=== PATIENT | female | born 1960 | race Caucasian/White ===

== ENCOUNTER → 2019-01-23 | Outpatient (CLI) | payer BC ==
[~2019-01-23] MED LIST: IOPAMIDOL (ISOVUE 370) 100 ML BTL IV ONE
== END ==
LOC: FIMAGING 08:20
PROVIDERS: ATTEND Neurological Surgery
DX: M48.02 Spinal stenosis, cervical region (principal); M43.12 Spondylolisthesis, cervical region
CPT/HCPCS: Q9967

== ENCOUNTER 2019-01-24 10:19 | Inpatient (IN) | payer BC ==
--- NOTE | 2019-01-24 06:41 | PDHPUP ---
History & Physical Update H&P update statement: This history and physical update is based on an assessment of the patient which was completed after admission or registration (within 24 hours), but prior to the surgery/procedure. H&P update: H&P reviewed & patient examined, no change in patient's condition since H&P completed
[~2019-01-24 10:19] MED LIST changes: +ACETAMINOPHEN 500 MG TAB PO ONE; +GABAPENTIN 300 MG CAP PO ONE; -IOPAMIDOL (ISOVUE 370) 100 ML BTL IV ONE; +LR 1,000 ML IV ONE; +ceFAZolin 2 GM/DEXTROSE 100 ML IV ONE
[2019-01-24] MEDS ORDERED: MIDAZOLAM 2 MG/2 ML VIAL IVP ONE (10:38)
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
[2019-01-24] MEDS ORDERED: BACITRACIN 50,000 UNITS/10 ML SYR IRR ONE (11:29)
[2019-01-24] MEDS ORDERED: CHLORHEXIDINE GLUC HIBICLENS 118 ML BTL TP ONE (11:29)
[2019-01-24] MEDS ORDERED: BUPIVACAINE/EPI 0.25% 30 ML SDV ONE (11:29)
[2019-01-24] MEDS ORDERED: THROMBIN (BOVINE) 5,000 UNIT VIAL TP ONE (11:29)
[2019-01-24] MEDS ORDERED: diphenhydrAMINE 25 MG CAP PO PRN (11:48)
[2019-01-24] MEDS ORDERED: ONDANSETRON DISINTEGRATING 4 MG TAB PO PRN (11:48)
[2019-01-24] MEDS ORDERED: MAGNESIUM HYDROXIDE 30 ML UDCUP PO PRN (11:48)
[2019-01-24] MEDS ORDERED: POLYETHYLENE GLYCOL 3350 17 GM PKT PO PRN (11:48)
[2019-01-24] MEDS ORDERED: LACTULOSE 20 GM/30 ML UDCUP PO PRN (11:48)
[2019-01-24] MEDS ORDERED: BISACODYL 10 MG SUPP PR PRN (11:48)
[2019-01-24] MEDS ORDERED: ONDANSETRON 4 MG/2 ML VIAL IVP PRN ×2 (11:48→13:00)
[2019-01-24] MEDS ORDERED: ROCURONIUM 50 MG/5 ML VIAL ONE (11:52)
[2019-01-24] MEDS ORDERED: SUCCINYLCHOLINE CHLORIDE 200 MG/10 ML SYR IVP ONE (11:52)
[2019-01-24] MEDS ORDERED: fentaNYL 100 MCG/2 ML INJ ONE ×2 (11:52→14:21)
[2019-01-24] MEDS ORDERED: ONDANSETRON 4 MG/2 ML VIAL ONE (11:52)
[2019-01-24] MEDS ORDERED: PROPOFOL/EMULSION 500 MG/50 ML BOTTLE IV ONE (11:52)
[2019-01-24] MEDS ORDERED: PROPOFOL 200 MG/20 ML VIAL ONE (11:52)
[2019-01-24] MEDS ORDERED: REMIFENTANIL HCL 1 MG VIAL ONE (11:52)
[2019-01-24] MEDS ORDERED: DEXAMETHASONE 4 MG/ML VIAL ONE (11:55)
[2019-01-24] MEDS ORDERED: LIDOCAINE 2% 5 ML SDV ONE (11:57)
[2019-01-24] MEDS ORDERED: NS 1,000 ML IV SCH (12:00)
[2019-01-24] MEDS ORDERED: ePHEDrine SULFATE 25 MG/5 ML SYR ONE (12:18)
[2019-01-24] MEDS ORDERED: MEPERIDINE 25 MG/0.5 ML AMP IVP PRN (13:00)
[2019-01-24] MEDS ORDERED: PHENYLEPHRINE HCL 100 MCG/ML SYR IVP PRN (13:00)
[2019-01-24] MEDS ORDERED: oxyCODONE IR 5 MG TAB PO PRN (13:00)
[2019-01-24] MEDS ORDERED: HYDROCODONE/APAP 5/325 TAB PO PRN (13:00)
[2019-01-24] MEDS ORDERED: PROMETHAZINE HCL 25 MG/ML INJ IVP PRN (13:00)
[2019-01-24] MEDS ORDERED: NALOXONE HCL 0.4 MG/ML INJ IVP PRN (13:00)
[2019-01-24] MEDS ORDERED: LABETALOL HCL 5 MG/ML 20 ML MDV IVP PRN (13:00)
[2019-01-24] MEDS ORDERED: ACETAMINOPHEN 500 MG TAB PO PRN (13:00)
[2019-01-24] MEDS ORDERED: LR 500 ML IV PRN (13:00)
[2019-01-24] MEDS ORDERED: fentaNYL 100 MCG/2 ML INJ IVP PRN (13:00)
--- NOTE | 2019-01-24 13:40 | PDMN ---
Medical Necessity Medical necessity: [facility] [place] [facility] [place] Cervical Fusion, Anterior, A-1 day: 58 yo s/p C4/5 cervical fusion anterior w/ hardware removal. Pt IP status for additional hardware removal w/ prior C5/6 fusion
[2019-01-24] MEDS ORDERED: PHENYLEPHRINE HCL 100 MCG/ML SYR ONE (14:01)
--- NOTE | 2019-01-24 14:20 | POSTOPPROG ---
Post Op Note Date of Operation: 01/24/19 Surgeon: Dayana York Chief Lifestyle Officer: MIGUEL Wilson Anesthesiologist: MD Ren Anesthesia: GET(General Endotracheal), Local (Specify) Pre-op Diagnosis: cervical stenosis C4/5 Post-op Diagnosis: cervical stenosis C4/5 Indication: LUE pain, neck pain. Stenosis on MRI Procedure: removal of hardware C5 level with new ACDF C4/5 Findings: see op report Inf/Abcess present in the surg proc area at time of surgery?: No Depth: Deep Incisional (Fascial) EBL: 100-500 Total fluids administered: see anesthesia record Complications: none Bowel Protocol: No Clean Closure Performed: Yes
--- NOTE | 2019-01-24 14:25 | SOAPPROG ---
SOAP Progress Note Assessment/Plan: Post Op Visit: S: Awake and alert. NAD. Pt with expected neck pain O: AFVSS/PERRLA/EOMI no droop CN 2-12 grossly intact +lt touch 5/5 BUE/BLE = CDI Neck soft and supple A/P: 58 yo female that is s/p removal of hardware at C5 with new ACDF C4/5 -orders in place -call with any questions or concerns -PT/OT/ST pending -post op xrays in am -collar from [facility] -take medications as directed Objective: Vital Signs Temp Pulse Resp BP Pulse Ox 37.3 C 99 9 L 162/89 H 98 01/24/19 11:50 01/24/19 11:50 01/24/19 11:50 01/24/19 11:50 01/24/19 11:50 ICD10 Worksheet Patient Problems: Problems Problem Status Onset Cervical radicular pain Acute Cervical stenosis of spine Acute S/P cervical spinal fusion Acute - ICD10 Problem Qualifiers (1) Cervical stenosis of spine (2) Cervical radicular pain (3) S/P cervical spinal fusion
[2019-01-24] MEDS ORDERED: HYDROmorphONE/DILAUDID 1 MG/ML INJ ONE (14:33)
[2019-01-24] MEDS: HYDROmorphONE/DILAUDID 1 MG/ML INJ IVP PRN ×5 (14:36→21:04)
[2019-01-24] MEDS ORDERED: DIAZEPAM 5 MG/ML 1 ML SYR ONE (14:59)
[2019-01-24] MEDS ORDERED: DIAZEPAM 5 MG/ML 1 ML SYR IVP ONE (15:15)
[2019-01-24] MEDS ORDERED: oxyCODONE IR 5 MG TAB ONE (15:23)
[2019-01-24] MEDS: ACETAMINOPHEN 500 MG TAB PO SCH ×2 (16:43→21:10)
[2019-01-24] MEDS: GABAPENTIN 300 MG CAP PO SCH ×2 (16:43→21:10)
[2019-01-24] MEDS: METHOCARBAMOL 750 MG TAB PO PRN ×2 (16:53→22:52)
--- NOTE | 2019-01-24 17:39 | POSTANESTH ---
Post Anesthetic Evaluation Cardiovascular Status: Similar to Pre-Op Cond Respiratory Status: Normal, Stable Level of Consciousness/Mental Status: Can Participate in Eval Pain Control: Adequate, Prn Tx Ordered Nausea/Vomiting Control: Adequate, Prn Tx Ordered Complications Possibly Related to Anesthesia: None Noted
[2019-01-24] MEDS: LORazepam 1 MG TAB PO PRN (17:46)
[2019-01-24] MEDS: oxyCODONE IR 5 MG TAB PO PRN ×2 (17:46→22:52)
[2019-01-24] MEDS: SENNOSIDES/DOCUSATE SODIUM TAB PO SCH (21:10)
[2019-01-24] MEDS: ceFAZolin 2 GM/DEXTROSE 100 ML IV SCH (21:10)
[2019-01-24] MEDS: FAMOTIDINE 20 MG TAB PO SCH (21:10)
[2019-01-25] MEDS: LORazepam 1 MG TAB PO PRN ×3 (02:06→20:40)
[2019-01-25] MEDS: HYDROmorphONE/DILAUDID 1 MG/ML INJ IVP PRN (02:11)
--- NOTE | 2019-01-25 04:11 | GOP ---
[f rep st] OPERATIVE REPORT DATE OF OPERATION: 01/24/2019 SURGEON: Fidencio York MD CORK PAINTER AND GRADER: Hernandez Wilson PA-C. PREOPERATIVE DIAGNOSIS: Adjacent segment disease with cervical stenosis and degenerative disk diseas e above a prior C5-6/C6-7 fusion. The new disease is at the C4-5 level. POSTOPERATIVE DIAGNOSIS: Adjacent segment disease with cervical stenosis and degenerative disk disea se above a prior C5-6/C6-7 fusion. The new disease is at the C4-5 level. PROCEDURE PERFORMED: Anterior cervical diskectomy with arthrodesis and bilateral foraminal decompres jeana, same level C4-5 (68662), removal of anterior cervical plating system at C5 (08528), placement o f biomechanical intervertebral device C4-5 ([id number]), same-incision bone graft harvest, microscope, yannick cement of an anterior cervical plate C4-5 ([id number]). FINDINGS: ESTIMATED BLOOD LOSS: 25 cc. INDICATIONS: The patient is a 58-year-old who underwent a successful two-level ACDF with an outside surgeon at C5-6/C6-7 a few years ago. She developed adjacent segment disease and had a herniated dis k on the left at C4-5 causing severe left scapular pain and left posterior neck pain. It was really excruciating, and she almost had surgery a couple months back, but ultimately decided to forego that surgery. Prior to that surgery and prior to this surgery, we had had numerous visits discussing appr oaches to her cervical spine. She also had disk disease and disk herniations at the two levels below the current surgery at C7-T1 and even T1-T2, and she had disease now at C4-5. There was no clear ev idence of disk herniation yet at C3-4, but I told her that in time this would almost certainly occur. All the changes in her neck had developed over the last several years, and it was my feeling that s he would likely continue to experience degenerative changes at the subsequent levels. She naturally wanted to avoid this, and she wanted to have a disk replacement at C4-5. She indicated that Dr. Blair pierre up in [place] had offered this to her, and I encouraged her to go see him for an opinion if she wan jaziel to pursue that. I had reviewed the case with my partners and none of us felt that disk replaceme nt was the right option for her, but we were not in disagreement with her pursuing that surgery with another surgeon. We simply did not want to offer it to her. She understood this, and she did want t o have surgery with us, and she understood the limitations of fusion surgery. She knew that no surge ry was going to completely eliminate her neck pain. She knew that no surgery was going to prevent fu ture spine surgery necessarily. She knew there was a risk of vascular injury, esophageal injury, car otid injury, recurrent laryngeal nerve injury, hoarseness, and other nerve injury as well as major va scular injury, including injury that could be life-threatening. She knew the risk of spinal cord inj ury, nerve injury and spinal fluid leak, and she almost certainly knew that she would require future spine surgery despite what we did today. She knew there was risk of pseudoarthrosis and screw and quinonez rdware malposition and malfunction, and she wanted to proceed despite all these risks. She had had s everal opportunities to ask questions. We had done our best to answer all her questions completely, and she wanted to proceed with surgery with me. DESCRIPTION OF PROCEDURE: The patient was taken to the operating room, placed in a supine position. General anesthesia was begun. A midline shoulder roll was placed. Her head was kept neutral. The occiput was gently extended. The neck was kept neutral. She was sterilely prepped and draped in the usual fashion. She had a localizing x-ray and we planned a transverse incision on the right side of the neck opposite where a prior surgery was. We used the dominant neck crease, the same crease that the other surgeon had used. We infiltrated the skin with 0.25% Marcaine with epinephrine and made a transverse incision with the scalpel blade full-thickness through the skin. We then used the Bovie cautery at a low setting on the platysma muscle itself. We then used a combination of sharp and blun t dissection medial to the sternocleidomastoid and lateral to the strap muscles down the prevertebral space. The dissection was extremely straightforward. We worked our way rostral to the omohyoid mus kevin, and it was an incredibly simple exposure, exposing the prior cervical plate. We mobilized the e sophagus off the prior plate. There were bone spurs and spondylosis coming out of the disk above the prior plate. We dissected the soft tissue off the prior plate, and then we cut the plate just above the C6 fixation screws. Care was taken to smooth the edges of the plate so that no damage would be done to the esophagus even after we closed. There were no sharp edges left on the plate itself. We cut the plate with a carbide bit. We placed sterile K-Y jelly into the prevertebral space prior to c utting the plate to caps and metal shavings, and this worked nicely. We irrigated with large amounts of antibiotic saline. We cut the plate, removed the two screws, and removed the entire rostral port ion of the C5-6/C6-7 plates and part that was attached to C5. We then attached and placed a distract ion pin in the C4 and C5 vertebral bodies, distracted at C4-5, and then introduced the operating micr oscope. There were large osteophytes coming out of the C4-5 level; these were removed. We removed t he disk and the cartilaginous endplates. We drilled and harvested subchondral bone for autologous gr afting purposes. The bone quality seemed very good. We opened the posterior longitudinal ligament a nd decompressed the thecal sac centrally, and then worked our way into the neural foramina bilaterall y. We spent more time in the patient's left-sided neural foramen at C4-5, decompressing the exiting C5 nerve root which was identified. There was some venous bleeding from the rostral border of the ne rve root above the nerve root itself. We took a very tiny piece of Gelfoam and packed it just rostra l to the root, and this totally stopped that bleeding. It was easy to control. We then decompressed the C5 root out to about the mid to lateral pedicles of C5 following the rostral border of the C5 pe dicle out in the foramen. On the patient's right-hand side, we got a good decompression of that fora men, too. We sized the space. I wanted to use the large Footprint implant, but it was simply just a little too big. The 14 mm depth was too much for this disk space. We had a good wide exposure for it, but I did not like the lateral radiograph of the Sizer when we put it in place. I, therefore, ch ose an 8 mm lordotic, smaller profile implant. We packed it with bone autograft and inserted it at C 4-5, got a great fit. Then we removed our distraction pins. We smoothed the ventral surface of the vertebral body and chose a 21 mm plate. We placed the two lower screws using 4 mm rescue type screws at C5, and then placed two screws at C4. One was a 13 mm and one was a 15 mm, and lateral radiograp hs looked great. We locked them according to company specification. We then achieved meticulous hem ostasis. We then closed the platysma with interrupted Vicryl sutures. The skin was reapproximated w ith interrupted Vicryl sutures. Steri-Strips were applied to the skin. The patient was reversed fro m anesthesia, extubated, and transferred to the recovery room in stable condition. There were no com plications whatsoever. SURGEON: Fidencio York MD. COMPLICATIONS: None. /[id number]/MODL
[2019-01-25] MEDS: oxyCODONE IR 5 MG TAB PO PRN ×5 (04:18→18:40)
[2019-01-25] MEDS: ceFAZolin 2 GM/DEXTROSE 100 ML IV SCH (04:19)
[2019-01-25] MEDS: ACETAMINOPHEN 500 MG TAB PO SCH ×2 (05:04→12:53)
[2019-01-25] MEDS: GABAPENTIN 300 MG CAP PO SCH ×3 (05:04→20:41)
--- NOTE | 2019-01-25 08:05 | NEUSURGPN ---
Date of Surgery: 01/24/19 Post Op Day: 1 Assessment/Plan: Assessment: 58 yo female that is s/p removal of hardware at C5 with new ACDF C4/ 5 POD#1 Plan: -PT/OT/ST -post op xrays pending -collar from [facility] -pain management. pain currently not controlled. -Ice to posterior neck prn -discussed patient with Dr York who will also see patient today Please call with questions or concerns Subjective: left sided scapular pain Objective: AxOx4 MAEx4 5/5 BUE, BLE dressing CDI Soft collar in place Neuro Check Frequency: per routine Urinary Catheter in Place: No - Physician Discussed Patient with : Jaylen Neurosurgery Physical Exam - Vitals, I&O, Labs I and O 01/24/19 01/25/19 01/26/19 05:59 05:59 05:59 Intake Total 2720 Balance 2720 Weight 55.792 kg Intake: Oral (ml) 1120 IV Intake (ml) 1600 Other: Number of Voids Toilet 3 Vital Signs Temp Pulse Resp BP Pulse Ox 37.1 C 76 17 114/80 95 01/25/19 07:42 01/25/19 07:42 01/25/19 07:42 01/25/19 07:42 01/25/19 07:42 ICD10 Worksheet Patient Problems: Problems Problem Status Onset Cervical radicular pain Acute Cervical stenosis of spine Acute S/P cervical spinal fusion Acute
[2019-01-25] MEDS: METHOCARBAMOL 750 MG TAB PO PRN (08:07)
[2019-01-25] MEDS: FAMOTIDINE 20 MG TAB PO SCH ×2 (08:08→20:41)
[2019-01-25] MEDS: SENNOSIDES/DOCUSATE SODIUM TAB PO SCH ×2 (08:09→20:42)
[2019-01-25] MEDS: ESCITALOPRAM OXALATE 10 MG TAB PO SCH (10:42)
[2019-01-25] MEDS: valACYclovir 500 MG TAB PO SCH ×2 (10:43→20:41)
[2019-01-25] MEDS: METHOCARBAMOL 750 MG TAB PO SCH ×3 (12:53→20:39)
[2019-01-26] MEDS: oxyCODONE IR 5 MG TAB PO PRN ×5 (00:17→20:24)
[2019-01-26] MEDS: ACETAMINOPHEN 500 MG TAB PO SCH ×4 (00:18→21:57)
[2019-01-26] MEDS: LORazepam 1 MG TAB PO PRN ×3 (06:01→21:57)
[2019-01-26] MEDS: METHOCARBAMOL 750 MG TAB PO SCH ×4 (06:01→20:23)
[2019-01-26] MEDS: GABAPENTIN 300 MG CAP PO SCH ×3 (06:02→21:58)
--- NOTE | 2019-01-26 09:41 | NEUSURGPN ---
Date of Surgery: 01/24/19 Post Op Day: 2 Assessment/Plan: 58 yo female that is s/p removal of hardware at C5 with new ACDF C4/5 POD#2 Plan: -PT/OT/ST -post op xrays with hardware in good placement -pain management -Ice to posterior neck prn -monitor swallowing -discussed patient with Dr York -dispo: likely home tomorrow Please call with questions or concerns Subjective: Having neck pain and some difficulties swallowing. No UE symptoms. Objective: Awake. Alert. PERRL. EOMI Facial expression symmetrical Muscle strength full at 5/5 Sensation intact Incision with dressing c/d/i - Physician Discussed Patient with : Jaylen Neurosurgery Physical Exam - Vitals, I&O, Labs I and O 01/25/19 01/26/19 01/27/19 05:59 05:59 05:59 Intake Total 3020 500 Balance 3020 500 Weight 55.792 kg Intake: Oral (ml) 1120 500 IV Intake (ml) 1700 IV Infused (ml) 200 ceFAZolin 2 GM/DEXTROSE 200 100 ml @ 200 mls/hr IV Q8H [facility] Rx#:[id number] Other: Number of Voids Toilet 3 3 Vital Signs Temp Pulse Resp BP Pulse Ox 36.7 C 71 14 128/84 H 96 01/26/19 07:55 01/26/19 07:55 01/26/19 07:55 01/26/19 07:55 01/26/19 07:55 ICD10 Worksheet Patient Problems: Problems Problem Status Onset Cervical radicular pain Acute Cervical stenosis of spine Acute S/P cervical spinal fusion Acute
[2019-01-26] MEDS: valACYclovir 500 MG TAB PO SCH ×2 (09:48→20:23)
[2019-01-26] MEDS: SENNOSIDES/DOCUSATE SODIUM TAB PO SCH ×2 (09:48→20:24)
[2019-01-26] MEDS: FAMOTIDINE 20 MG TAB PO SCH ×2 (09:48→20:23)
[2019-01-26] MEDS: ESCITALOPRAM OXALATE 10 MG TAB PO SCH (09:48)
--- NOTE | 2019-01-26 16:14 | ASMTCMCOM ---
CM Note CM Note Notes: Patient is a 58 year old female who is presented for planned removal of hardware at C5 with new ACDF C4/5. CM discussed with Chiquis Das who is supporting patient, [facility] referral sent, they responded with interest. CM discussed with KAYCEE Velazquez, patient likely to discharge home tomorrow. CM to follow. D/C Plan: Home with [facility] Date Signed: 01/26/2019 04:13 PM Electronically Signed By:Samantha Nicolas
[2019-01-27] MEDS: METHOCARBAMOL 750 MG TAB PO SCH ×3 (06:16→17:53)
[2019-01-27] MEDS: oxyCODONE IR 5 MG TAB PO PRN ×2 (06:17→09:34)
[2019-01-27] MEDS: ACETAMINOPHEN 500 MG TAB PO SCH ×3 (06:17→17:53)
[2019-01-27] MEDS: GABAPENTIN 300 MG CAP PO SCH ×2 (06:18→13:10)
--- NOTE | 2019-01-27 07:01 | NEUSURGPN ---
Date of Surgery: 01/24/19 Post Op Day: 3 Assessment/Plan: 58 yo female that is s/p removal of hardware at C5 with new ACDF C4/5 POD#3 -post op xrays with hardware in good placement pt with some issues of post operative pain control improved and mild difficulty with swallowing. Plan: -PT/OT/ST -pain management -Hard collar at all times -Ice to posterior neck prn -monitor swallowing -discussed patient with Dr York -dispo: home later today Please call with questions or concerns Subjective: doing well, has some left sided neck pain but that is all that is bothersome. Got a little behind on her pain meds last night. ready to go home. Objective: Awake. Alert. PERRL. EOMI Facial expression symmetrical Muscle strength full at 5/5 Sensation intact Incision with dressing c/d/i - Physician Discussed Patient with : Jaylen Neurosurgery Physical Exam - Vitals, I&O, Labs I and O 01/26/19 01/27/19 01/28/19 05:59 05:59 05:59 Intake Total 500 1600 500 Balance 500 1600 500 Intake: Oral (ml) 500 1600 500 Other: Intake Quantity Yes Sufficient Number of Voids Toilet 3 3 Vital Signs Temp Pulse Resp BP Pulse Ox 37.2 C 98 16 118/86 H 95 01/26/19 21:53 01/26/19 21:53 01/26/19 21:53 01/26/19 21:53 01/26/19 21:53 ICD10 Worksheet Patient Problems: Problems Problem Status Onset Cervical radicular pain Acute Cervical stenosis of spine Acute S/P cervical spinal fusion Acute
[2019-01-27] MEDS ORDERED: ENOXAPARIN 40 MG/0.4 ML SYR SC SCH (09:00)
[2019-01-27] MEDS: FAMOTIDINE 20 MG TAB PO SCH (09:35)
[2019-01-27] MEDS: valACYclovir 500 MG TAB PO SCH (09:35)
[2019-01-27] MEDS: ESCITALOPRAM OXALATE 10 MG TAB PO SCH (09:35)
[2019-01-27] MEDS: SENNOSIDES/DOCUSATE SODIUM TAB PO SCH (09:35)
[2019-01-27] MEDS: LORazepam 1 MG TAB PO PRN ×2 (10:41→16:56)
[2019-01-27] MEDS ORDERED: HYDROCODONE/APAP 5/325 TAB PO PRN (14:12)
[2019-01-27 15:50] VITALS: BP 102/69
[2019-01-27] MEDS ORDERED: HYDROCODONE/APAP 10/325 TAB PO PRN (16:07)
[2019-04-07] MEDS ORDERED: ESTRING VG SCH (08:15)
== END 2019-01-27 17:17 | disposition home health service (06) | DRG 473 ==
LOC: F3N 10:19
PROVIDERS: ADMIT Neurological Surgery; ATTEND Neurological Surgery
PROC: 01N10ZZ Release Cervical Nerve, Open Approach (ICD-10-PCS; principal; 2019-01-24 12:00)
PROC: 0RP10AZ Removal of Interbody Fusion Device from Cervical Vertebral Joint, Open Approach (ICD-10-PCS; principal; 2019-01-24 12:00)
PROC: 0RG10A0 Fusion of Cervical Vertebral Joint with Interbody Fusion Device, Anterior Approach, Anterior Column, Open Approach (ICD-10-PCS; principal; 2019-01-24 12:00)
PROC: 00NX0ZZ Release Thoracic Spinal Cord, Open Approach (ICD-10-PCS; principal; 2019-01-24 12:00)
DX: M48.02 Spinal stenosis, cervical region (principal); M50.322 Other cervical disc degeneration at C5-C6 level; M50.323 Other cervical disc degeneration at C6-C7 level; G43.909 Migraine, unspecified, not intractable, without status migrainosus; F41.9 Anxiety disorder, unspecified
CPT/HCPCS: 92526-GN; 92610-GN; 97116-GP; 97161-GP; 97166-GO; 97535-GO; C1713; J0330; J0690; J1100; J1170; J1650; J2250; J2370; J2405; J2704; J3010; J3360

== ENCOUNTER → 2019-03-07 | Outpatient (CLI) | payer BC | LOC: EMCIMAGING 14:15 ==